=== PATIENT | female | born 2000 | race African-American/Black ===

== ENCOUNTER 2024-12-01 12:22 | Emergency (ER) | payer OTHER, SELFPAY ==
--- NOTE | ~2024-12-01 | XR_ITS ---
Clinical Indication: Chest pain, shortness of breath PA and lateral views of the chest: Comparison: None Findings: The lungs are clear, without evidence of focal consolidation or pleural effusion. Cardiome diastinal silhouette is probably mildly enlarged. Bones and soft tissues are unremarkable. Impression: Clear lungs. Probable mild cardiomegaly. Reviewed, dictated and finalized at location . Impression: Clear lungs. Probable mild cardiomegaly.
--- NOTE | 2024-12-01 12:24 | ECG_ITS ---
Test Date: 2024-12-01 12:32:59 Measurements Intervals [place] Rate: 84 P: 38 W[place]: 100 QRS: 48 QRSD: 96 T: 32 QT: 358 QTc: 426 Interpretive Statements SINUS RHYTHM WITH SHORT [place] INTERVAL BASELINE ARTIFACT- I, III, AVR, AVL BORDERLINE ECG No previous ECG available for comparison Electronically Signed On 12-01-2024 13:01:57 CDT by Juan Hassan D.O.
[2024-12-01 12:34] VITALS: BP 177/118; PULSE 84; RESP 16; TEMP 36.9; O2SAT 98
--- NOTE | 2024-12-01 12:41 | ED_ITS ---
HPI - Chest Pain General Chief Complaint: Chest Pain <Lorraineshayna Vargas APRN - Last Filed: 12/01/24 12:42> Stated Complaint: CP <Lorraine Vargas APRN - Last Filed: 12/01/24 12:42> Time Seen by Provider: 12/01/24 12:30 <Lorraineshayna Vargas APRN - Last Filed: 12/01/24 12:42> Focused HPI: Patient is a 24-year-old female who presents to the ER with complaints chest pain is been going on for approximately 2 weeks. She reports the pain is constant and nothing makes it worse or better. Patient denies any back pain, recent fevers, urinary symptoms. She does endorse occasional shortness of breath. Patient reports she has a history of lupus and high blood pressure. She currently does not take medication to treat her blood pressure. GENERAL: Well-appearing, well-nourished, and in no acute distress. HEAD: Normocephalic, atraumatic. CHEST: Clear to auscultation. ?No respiratory distress. HEART: Regular rate and rhythm.? NEURO: ?Alert and oriented x3. Patient screened in triage and initial orders placed.? ?Additional care and disposition to be based upon?diagnostic testing and treatment. <Lorraine Vargas APRN - Last Filed: 12/01/24 12:42> Focused HPI: Patient is a 24-year-old female who presents to the ER with complaints chest pain is been going on for approximately 2 weeks. She reports the pain is intermittent and nothing makes it worse or better. Patient denies any back pain, recent fevers, urinary symptoms. She does endorse occasional shortness of breath. Patient reports she has a history of lupus and high blood pressure. She currently does not take medication to treat her blood pressure. GENERAL: Well-appearing, well-nourished, and in no acute distress. HEAD: Normocephalic, atraumatic. CHEST: Clear to auscultation. ?No respiratory distress. HEART: Regular rate and rhythm.? NEURO: ?Alert and oriented x3. Patient screened in triage and initial orders placed.? ?Additional care and disposition to be based upon?diagnostic testing and treatment. <Abdi Reich MD - Last Filed: 12/01/24 17:45> History of Present Illness HPI narrative: As reviewed above in HPI. History of SLE and takes hydroxychloroquine and meloxicam. No history of organ dysfunction, kidney injury your coronary disease. <Abdi Reich MD - Last Filed: 12/01/24 17:45> Related Data Allergies/Adverse Reactions: Allergies Allergy/AdvReac Type Severity Reaction Status Date / Time No Known Allergies Allergy Verified 12/01/24 12:23 <Lorraine Vargas APRN - Last Filed: 12/01/24 12:42> Review of Systems 2 Review of Systems: As reviewed above in HPI <Abdi Reich MD - Last Filed: 12/01/24 17:45> Exam 2 Narrative: GENERAL: [Well-appearing, well-nourished, and in no acute distress.] HEAD: [Normocephalic, atraumatic.] EYES: [PERRLA and EOMI.] ENT: Nares clear, no rhinorrhea or epistaxis. Mucous membranes moist. NECK: Supple. CHEST: [Clear to auscultation. No respiratory distress.] HEART: [Regular rate and rhythm]. No murmur heard. [Normal peripheral pulses.] ABDOMEN: [Soft, nondistended], [nontender], [No rigidity or guarding] EXTREMITIES: Normal range of motion. [No edema.] SKIN: Warm, dry, no rash. NEURO: [No focal deficits]. Alert and oriented [x3.] PSYCH: [Normal mood and affect.] <Abdi Reich MD - Last Filed: 12/01/24 17:45> Course Vital Signs Vital signs: Vital Signs Temperature 36.9 C 12/01/24 12:34 Pulse Rate 84 12/01/24 12:34 Respiratory Rate 16 12/01/24 12:34 Blood Pressure 177/118 H 12/01/24 12:34 Pulse Oximetry 98 12/01/24 12:34 Oxygen Delivery Room Air 12/01/24 12:34 Temperature 36.6 C 12/01/24 14:30 Pulse Rate 81 12/01/24 17:18 Respiratory Rate 18 12/01/24 17:18 Blood Pressure 161/114 H 12/01/24 17:18 Pulse Oximetry 100 12/01/24 17:18 Oxygen Delivery Room Air 12/01/24 12:34 <Lorraine Vargas APRN - Last Filed: 12/01/24 12:42> Vital Signs Temperature 36.9 C 12/01/24 12:34 Pulse Rate 84 12/01/24 12:34 Respiratory Rate 16 12/01/24 12:34 Blood Pressure 177/118 H 12/01/24 12:34 Pulse Oximetry 98 12/01/24 12:34 Oxygen Delivery Room Air 12/01/24 12:34 Temperature 36.6 C 12/01/24 14:30 Pulse Rate 81 12/01/24 17:18 Respiratory Rate 18 12/01/24 17:18 Blood Pressure 161/114 H 12/01/24 17:18 Pulse Oximetry 100 12/01/24 17:18 Oxygen Delivery Room Air 12/01/24 12:34 <Abdi Reich MD - Last Filed: 12/01/24 17:45> MDM - Chest Pain MDM Narrative Medical decision making narrative: 24-year-old otherwise healthy appearing female with history of SLE presenting to the emergency room with chief complaint of intermittent midsternal chest pain for 1 month. No cardiac history. Takes hydroxychloroquine for lupus. Sees a engineering supplies sales regularly. Takes amlodipine for blood pressure elevations. No chest pain presently, no nausea, vomiting, abdominal pain or back pain. She was otherwise in her normal state of health. Denies any trauma or injury. She is low risk factors for coronary disease specially given her age and suspicion presently is for musculoskeletal chest discomfort potential bronchitis versus pericarditis versus pneumonia pneumothorax. CBC, CMP, EKG and chest x-ray obtained. Patient has elevated blood pressures but presently asymptomatic from this. Laboratory studies showed no leukocytosis, hemoglobin 9.7 but no baseline for comparison. Normal platelet count. Chemistry panel is unremarkable. Normal renal function, normal glucose, negative troponin. Chest x-ray shows clear lungs, no consolidation or effusion. EKG shows sinus rhythm, no signs of ST segment changes or concern. Patient was safe for discharge home at this time and regular primary care provider follow-up. She was given return precautions and discharge. <Abdi Reich MD - Last Filed: 12/01/24 17:45> Medical Records Data Attestation: I reviewed the patient's medical records. <Abdi Reich MD - Last Filed: 12/01/24 17:45> Lab Data Attestation: I reviewed the patient's lab results. <Abdi Reich MD - Last Filed: 12/01/24 17:45> Result diagrams: 12/01/24 16:19 12/01/24 16:19 <Lorraine Vargas APRN - Last Filed: 12/01/24 12:42> Labs: Lab Results 12/01/24 Range/Units 16:19 WBC 4.5 (4.5-10.0) K/mm3 RBC 3.91 L (4.2-5.4) M/mm3 Hgb 9.7 L (12.0-15.0) g/dL Hct 31.9 L (37.0-47.0) % MCV 81.6 (80-100) fl MCH 24.8 L (26-34) pg MCHC 30.4 L (32-36) g/dl RDW 12.7 (11.5-14.5) % Plt Count 249 (150-375) k/mm3 MPV 10.7 H (7.4-10.4) fl Immature Gran % (Auto) 0.4 (0-0.5) % Neut % (Auto) 76.5 H (45.5-73.1) % Lymph % (Auto) 13.7 L (18.3-44.2) % [place] % (Auto) 5.5 (2.6-8.5) % Eos % (Auto) 3.7 (0-4.4) % Baso % (Auto) 0.2 (0.2-1.2) % Lymph # (Auto) 0.62 L (0.9-3.2) K/mm3 [place] # (Auto) 0.3 (0.1-0.6) K/mm3 Eos # (Auto) 0.2 (0-0.3) K/mm3 Baso # (Auto) 0.0 (0.0-0.1) K/mm3 Abs Immat Gran (auto) 0.02 (0.00-0.031) K/mm3 Absolute Neuts (auto) 3.5 (1.3-6.7) K/mm3 Absolute Nucleated RBC 0.000 (0.0-0.012) K/mm3 Nucleated RBC % 0.0 (0.0-0.2) % Sodium 139 (137-145) mmol/L Potassium 4.0 (3.4-5.0) mmol/L Chloride 104 (98-107) mmol/L Carbon Dioxide 26 (22-30) mmol/L Anion Gap 9 (4-12) mmol/L BUN 17 (7-17) mg/dL Creatinine 0.68 L (0.7-1.0) mg/dL Estim Creat Clear Calc 104 ml/min Estimated GFR > 60 (59 - ) Glucose 82 (65-110) mg/dL Calcium 8.4 (8.4-10.2) mg/dL Troponin I < 0.012 (0.000-0.034) ng/mL <Lorraine Vargas, [employer] - Last Filed: 12/01/24 12:42> Lab Results 12/01/24 Range/Units 16:19 WBC 4.5 (4.5-10.0) K/mm3 RBC 3.91 L (4.2-5.4) M/mm3 Hgb 9.7 L (12.0-15.0) g/dL Hct 31.9 L (37.0-47.0) % MCV 81.6 (80-100) fl MCH 24.8 L (26-34) pg MCHC 30.4 L (32-36) g/dl RDW 12.7 (11.5-14.5) % Plt Count 249 (150-375) k/mm3 MPV 10.7 H (7.4-10.4) fl Immature Gran % (Auto) 0.4 (0-0.5) % Neut % (Auto) 76.5 H (45.5-73.1) % Lymph % (Auto) 13.7 L (18.3-44.2) % [place] % (Auto) 5.5 (2.6-8.5) % Eos % (Auto) 3.7 (0-4.4) % Baso % (Auto) 0.2 (0.2-1.2) % Lymph # (Auto) 0.62 L (0.9-3.2) K/mm3 [place] # (Auto) 0.3 (0.1-0.6) K/mm3 Eos # (Auto) 0.2 (0-0.3) K/mm3 Baso # (Auto) 0.0 (0.0-0.1) K/mm3 Abs Immat Gran (auto) 0.02 (0.00-0.031) K/mm3 Absolute Neuts (auto) 3.5 (1.3-6.7) K/mm3 Absolute Nucleated RBC 0.000 (0.0-0.012) K/mm3 Nucleated RBC % 0.0 (0.0-0.2) % Sodium 139 (137-145) mmol/L Potassium 4.0 (3.4-5.0) mmol/L Chloride 104 (98-107) mmol/L Carbon Dioxide 26 (22-30) mmol/L Anion Gap 9 (4-12) mmol/L BUN 17 (7-17) mg/dL Creatinine 0.68 L (0.7-1.0) mg/dL Estim Creat Clear Calc 104 ml/min Estimated GFR > 60 (59 - ) Glucose 82 (65-110) mg/dL Calcium 8.4 (8.4-10.2) mg/dL Troponin I < 0.012 (0.000-0.034) ng/mL <Abdi Reich MD - Last Filed: 12/01/24 17:45> Imaging Data Attestation: I personally reviewed and interpreted this imaging study as follows: < Abdi Reich MD - Last Filed: 12/01/24 17:45> My impression: Impressions Chest X-Ray 12/01/24 13:23 Impression: Clear lungs. Probable mild cardiomegaly. <Abdi Reich MD - Last Filed: 12/01/24 17:45> ECG Data EKG #1: Attestation: I personally reviewed and interpreted this ECG as follows: < Abdi Reich MD - Last Filed: 12/01/24 17:45> ECG completion date: 12/01/24 <Abdi Reich MD - Last Filed: 12/01/24 17:45> ECG completion time: 12:32 <Abdi Reich MD - Last Filed: 12/01/24 17:45> Prior ECG tracings: not available for review <Abdi Reich MD - Last Filed: 12/01/24 17:45> Interpretation: No ST segment elevations, depressions or acute inversions. No baseline EKG for comparison. QTC 426, QR interval 96, DE interval 100, rate of 84 beats per minute. Overall sinus rhythm. <Abdi Reich MD - Last Filed: 12/01/24 17:45> Discharge Plan Discharge Clinical Impression: Chest pain <Lorraine Vargas APRN - Last Filed: 12/01/24 12:42> Patient Disposition: Home <Lorraine Vargas APRN - Last Filed: 12/01/24 12:42> Condition: Stable <Lorraine Vargas APRN - Last Filed: 12/01/24 12:42> Instructions: Antibiotic Form, Chest Pain (ED) <Lorraine Vargas APRN - Last Filed: 12/01/24 12:42> Additional Instructions: Your cardiac enzymes are undetected, EKG and chest x-ray were unremarkable as well your laboratory studies being normal. Follow-up with your regular primary care provider and engineering supplies sales. Return with any new or worsening concerns. <Lorraine Vargas APRN - Last Filed: 12/01/24 12:42> Patient Language: Indian <Lorraine Vargas APRN - Last Filed: 12/01/24 12:42> Follow-up/Referrals: PHYSICIAN NOT ON STAFF,NONSTAFF [Non-Staff] - <Lorraine Vargas APRN - Last Filed: 12/01/24 12:42> Time of Disposition: 17:45 <Lorraine Vargas APRN - Last Filed: 12/01/24 12:42> 17:45 <Abdi Reich MD - Last Filed: 12/01/24 17:45>
[2024-12-01 13:30] VITALS: BP 126/76; PULSE 74; RESP 16; TEMP 36.6; O2SAT 100
[2024-12-01 14:30] VITALS: BP 118/76; PULSE 86; RESP 16; TEMP 36.6; O2SAT 98
[2024-12-01 15:09] VITALS: BP 178/111; PULSE 82; RESP 19; O2SAT 100
--- NOTE | 2024-12-01 15:29 | PC.NURSE ---
Assumed care of patient. Resting on stretcher in NAD. Remains on full monitor, VS as charted. Patient has no complaints at this time. Call light in reach.
[2024-12-01 16:26] LABS: Basophils Percent Auto 0.2 % (0.2-1.2); Eosinophils Absolute Auto 0.2 K/mm3 (0-0.3); Eosinophils Percent Auto 3.7 % (0-4.4); Hematocrit 31.9 % (37.0-47.0); Hemoglobin 9.7 g/dL (12.0-15.0); Immature Granulocyte Absolute 0.02 K/mm3 (0.00-0.031); Immature Granulocyte Percent A 0.4 % (0-0.5); Lymphocytes Absolute Auto 0.62 K/mm3 (0.9-3.2); Lymphocytes Percent Auto 13.7 % (18.3-44.2); Mean Corpuscular HGB Conc 30.4 g/dl (32-36); Mean Corpuscular Hemoglobin 24.8 pg (26-34); Mean Corpuscular Volume 81.6 fl (80-100); Mean Platelet Volume 10.7 fl (7.4-10.4); Monocytes Absolute Auto 0.3 K/mm3 (0.1-0.6); Monocytes Percent Auto 5.5 % (2.6-8.5); Neutrophils Absolute Auto 3.5 K/mm3 (1.3-6.7); Neutrophils Percent Auto 76.5 % (45.5-73.1); Platelet Count Result 249 k/mm3 (150-375); Red Blood Count 3.91 M/mm3 (4.2-5.4); Red Cell Distribution Width 12.7 % (11.5-14.5); White Blood Count 4.5 K/mm3 (4.5-10.0)
[2024-12-01 16:35] LABS: Anion Gap 9 mmol/L (4-12); Blood Urea Nitrogen 17 mg/dL (7-17); Calcium 8.4 mg/dL (8.4-10.2); Carbon Dioxide 26 mmol/L (22-30); Chloride 104 mmol/L (98-107); Estimated CRCL calculation 104 ml/min; Estimated Glomerular Filt Rate > 60; Glucose 82 mg/dL (65-110); Sodium 139 mmol/L (137-145)
[2024-12-01 16:47] LABS: Troponin I < 0.012 ng/mL (0.000-0.034)
[2024-12-01 17:18] VITALS: BP 161/114; PULSE 81; RESP 18; O2SAT 100
[2024-12-01 17:52] VITALS: BP 161/110; PULSE 82; RESP 18; O2SAT 99
== END 2024-12-01 17:54 | disposition home or self-care (01) ==
PROVIDERS: Emergency Provider Student in an Organized Health Care Education/Training Program
DX: R07.9 Chest pain, unspecified (principal); M32.9 Systemic lupus erythematosus, unspecified
CPT/HCPCS: 36415; 71046; 80048; 84484; 85025; 93005; 99284